=== PATIENT | male | born 1955 | race Asian ===

== ENCOUNTER 2019-11-15 08:21 | Inpatient (IN) | payer BC ==
[~2019-11-15] VITALS: Ht 177.8 cm; Wt 81.8 kg
[2019-11-15] MEDS ORDERED: nitroGLYCERIN 0.4mg SUBLingual tab SL PRN ×3 (08:55→10:00)
[2019-11-15] MEDS ORDERED: aspirin 81mg tab.chew PO ONE (08:55)
[2019-11-15 09:19] LABS: BASOPHILS % (AUTO) 0.7 % (0-1); EOSINOPHILS # (AUTO) 0.1 X10'3 (0-0.9); HEMATOCRIT 41.8 % (42.0-52.0); HEMOGLOBIN 14.3 g/dl (14.0-17.9); LYMPHOCYTES # (AUTO) 0.9 X10'3 (1.1-4.8); MEAN CORPUSCULAR HEMOGLOBIN 32.1 PG (27.0-31.0); MEAN CORPUSCULAR HGB CONC 34.1 g/dL (33.0-36.5); MEAN PLATELET VOLUME 7.5 FL (7.4-10.4); MONOCYTES # (AUTO) 0.4 X10'3 (0-0.9); MONOCYTES % (AUTO) 7.6 % (2-12); NEUTROPHILS % (AUTO) 72.7 % (42-75); PLATELET COUNT 216 X10'3 (140-440); RED BLOOD COUNT 4.44 X10'6 (4.70-6.10); RED CELL DISTRIBUTION WIDTH 12.4 % (11.5-14.5); WHITE BLOOD COUNT 5.5 X10'3 (4.5-11.0)
[2019-11-15 09:24] LABS: ALANINE AMINOTRANSFERASE 36 U/L (12-78); ALBUMIN 3.8 G/DL (3.4-5.0); ALBUMIN/GLOBULIN RATIO 1.1 (1.1-1.5); ALKALINE PHOSPHATASE 76 IU/L (46-116); ANION GAP 7 (8-16); ASPARTATE AMINO TRANSFERASE 21 U/L (10-37); BILIRUBIN,TOTAL 0.9 MG/DL (0.1-1.0); BLOOD UREA NITROGEN 13 MG/DL (7-18); BUN/CREATININE RATIO 11.1 (5.4-32.0); CALCIUM 8.8 MG/DL (8.5-10.1); CHLORIDE 104 MMOL/L (99-107); CREATININE 1.17 MG/DL (0.60-1.10); GLUCOSE 158 MG/DL (70-104); POTASSIUM 3.9 MMOL/L (3.5-5.1); SODIUM 140 MMOL/L (135-145); TOTAL CARBON DIOXIDE 29.4 MMOL/L (24-32); TOTAL PROTEIN 7.3 G/DL (6.4-8.2); eGFR 63 ML/MIN
[2019-11-15] MEDS ORDERED: regadenoson 0.4mg/5ml syringe IV PRN (10:00)
[2019-11-15] MEDS ORDERED: potassium Cl 20 mEq SR tablet PO PRN ×2 (10:00)
[2019-11-15] MEDS ORDERED: acetaminophen 325mg tablet PO PRN ×2 (10:00)
[2019-11-15] MEDS ORDERED: ondansetron/PF 4mg/2ml inj IV PRN (10:00)
[2019-11-15] MEDS ORDERED: HYDROcodone/acetaminophen 10/325mg tab PO PRN (10:00)
[2019-11-15] MEDS ORDERED: metoprolol tartrate 1mg/ml inj IV PRN (10:00)
[2019-11-15] MEDS ORDERED: magnesium hydroxide 30ml (MOM) UD suspension PO PRN (10:00)
[2019-11-15] MEDS ORDERED: HYDROcodone/acetaminophen 5mg/325mg tablet PO PRN (10:00)
[2019-11-15] MEDS ORDERED: aminophylline 250mg/10ml inj. IV PRN (10:00)
[2019-11-15] MEDS ORDERED: magnesium Cl slow-release 64mg tablet PO PRN (10:00)
[2019-11-15] MEDS ORDERED: magnesium 2GM in 50ml NS 50 ML IV PRN (10:00)
[2019-11-15] MEDS ORDERED: potassium CL 10mEq/100ml bag 100 ML IV PRN ×2 (10:00)
[2019-11-15] MEDS ORDERED: magnesium 4gm in 100ml NS 100 ML IV PRN (10:00)
[2019-11-15] MEDS ORDERED: morphine 2 MG/ML inj. syringe IV PRN ×2 (10:00)
[2019-11-15] MEDS ORDERED: mag hydrox/Alum hydrox/simeth 30ml oral suspension PO PRN (10:00)
[2019-11-15 10:08] LABS: PARTIAL THROMBOPLASTIN TIME 27 SECONDS (22-32)
[2019-11-15] MEDS: normal saline 1000ml 1,000 ML IV SCH ×2 (10:41→22:27)
--- NOTE | 2019-11-15 10:51 | NUR ---
RECEIVED TELEPHONE REPORT FROM BILL BRIGGS.
[2019-11-15 11:00] VITALS: BP 134/82
[2019-11-15] MEDS ORDERED: ASPI-611 PO (11:58)
[2019-11-15] MEDS ORDERED: CARV12.5 PO (11:58)
[2019-11-15] MEDS ORDERED: ATOR40TA71 PO (11:58)
[2019-11-15] MEDS ORDERED: RANO500T3 PO (11:58)
--- NOTE | 2019-11-15 14:01 | NUR ---
PAGER ID: [phone] MESSAGE: DR. LANGE, 3012C/TOPHER, 3 HOUR TROP 0.07. JORY 2329/5451. TY
[2019-11-15] MEDS ORDERED: heparin 10,000 units/1 ML INJ IV PRN (14:40)
[2019-11-15] MEDS ORDERED: heparin 10,000 units/1 ML INJ IV ONE (14:40)
[2019-11-15 15:00] VITALS: BP 116/71
[2019-11-15] MEDS: heparin 25,000 UNIT/250ml bag 250 ML IV SCH (15:50)
[2019-11-15 18:00] VITALS: BP 131/84
--- NOTE | 2019-11-15 18:00 | NUR ---
PAGED RT:3012C HAS NEW RT ORDER FOR CPAP AT NIGHT. JORY 5455.
--- NOTE | 2019-11-15 18:26 | NUR ---
Patient in room PCU 3012. I have received report from Sesar KHAN and had the opportunity to ask questions and assume patient care.
--- NOTE | 2019-11-15 18:33 | NUR ---
Problems reprioritized. Patient report given, questions answered & plan of care reviewed with harris rodrigez.
[2019-11-15] MEDS: K and/or MAG REPLACEMENT MC SCH (19:01)
[2019-11-15] MEDS: carVEDilol 12.5mg tablet PO SCH (20:02)
[2019-11-15] MEDS ORDERED: temazepam 15mg capsule PO PRN (21:00)
[2019-11-15 22:00] VITALS: BP 119/76
[2019-11-16] VITALS (15 sets, daily range): BP systolic 102–136; BP diastolic 56–87
[2019-11-16 06:05] LABS: BASOPHILS % (AUTO) 0.6 % (0-1); EOSINOPHILS # (AUTO) 0.1 X10'3 (0-0.9); EOSINOPHILS % (AUTO) 2.3 % (0-6); HEMATOCRIT 39.5 % (42.0-52.0); HEMOGLOBIN 13.5 g/dl (14.0-17.9); LYMPHOCYTES # (AUTO) 0.9 X10'3 (1.1-4.8); LYMPHOCYTES % (AUTO) 16.9 % (21-51); MEAN CORPUSCULAR HEMOGLOBIN 32.2 PG (27.0-31.0); MEAN CORPUSCULAR HGB CONC 34.2 g/dL (33.0-36.5); MEAN PLATELET VOLUME 7.3 FL (7.4-10.4); MONOCYTES # (AUTO) 0.5 X10'3 (0-0.9); MONOCYTES % (AUTO) 8.4 % (2-12); NEUTROPHILS % (AUTO) 71.8 % (42-75); PLATELET COUNT 198 X10'3 (140-440); RED CELL DISTRIBUTION WIDTH 12.7 % (11.5-14.5); WHITE BLOOD COUNT 5.5 X10'3 (4.5-11.0)
[2019-11-16 06:19] LABS: ALANINE AMINOTRANSFERASE 32 U/L (12-78); ALBUMIN 3.3 G/DL (3.4-5.0); ALKALINE PHOSPHATASE 62 IU/L (46-116); ANION GAP 8 (8-16); ASPARTATE AMINO TRANSFERASE 21 U/L (10-37); BILIRUBIN,TOTAL 0.7 MG/DL (0.1-1.0); BLOOD UREA NITROGEN 11 MG/DL (7-18); BUN/CREATININE RATIO 11.3 (5.4-32.0); CALCIUM 8.1 MG/DL (8.5-10.1); CHLORIDE 108 MMOL/L (99-107); CHOL/HDL RATIO 2.7 (0.00-4.99); CHOLESTEROL 130 MG/DL (0-200); CREATININE 0.97 MG/DL (0.60-1.10); GLUCOSE 121 MG/DL (70-104); HDL CHOLESTEROL 48 MG/DL (35-60); LDL CHOLESTEROL 65 MG/DL (50-100); MAGNESIUM 1.8 MG/DL (1.5-2.4); POTASSIUM 3.7 MMOL/L (3.5-5.1); SODIUM 142 MMOL/L (135-145); TOTAL CARBON DIOXIDE 25.8 MMOL/L (24-32); TOTAL PROTEIN 6.5 G/DL (6.4-8.2); TRIGLYCERIDES 114 MG/DL (20-135); eGFR 78 ML/MIN
--- NOTE | 2019-11-16 06:23 | NUR ---
Problems reprioritized. Patient report given, questions answered & plan of care reviewed with Maria Teresa KHAN.
--- NOTE | 2019-11-16 06:35 | NUR ---
Patient in room PCU 3012. I have received report from BILL Ho and had the opportunity to ask questions and assume patient care. Patient awake in bed and in no acute distress.
[2019-11-16] MEDS ORDERED: enoxaparin 40mg/0.4ml syringe SQ SCH (08:00)
[2019-11-16] MEDS: K and/or MAG REPLACEMENT MC SCH ×2 (08:00→19:29)
[2019-11-16] MEDS ORDERED: non-formulary drug (Aspirin (Aspir 81) 1 TAB) PO SCH (08:00)
[2019-11-16] MEDS: atorvastatin 20mg tablet PO SCH (08:19)
[2019-11-16] MEDS: aspirin 81mg tablet.DR PO SCH (08:20)
[2019-11-16] MEDS: carVEDilol 12.5mg tablet PO SCH ×2 (08:20→19:23)
[2019-11-16] MEDS: normal saline 1000ml 1,000 ML IV SCH (11:30)
[2019-11-16] MEDS ORDERED: LIDOcaine 1% (10mg/ml)w/preservative injection 20ml MDV ONE (15:19)
[2019-11-16] MEDS ORDERED: iohexol 350MG/ML 100ml bottle IV ONE (15:19)
[2019-11-16] MEDS: heparin 25,000 UNIT/250ml bag 250 ML IV SCH (16:08)
[2019-11-16] MEDS ORDERED: fentaNYL/PF 50MCG/1 ML 2ML syringe ONE (17:38)
[2019-11-16] MEDS ORDERED: midazolam 2 mg/2 ml injection ONE ×2 (17:38→17:55)
--- NOTE | 2019-11-16 17:41 | NUR ---
Patient going down to microbiology lab manager.
--- NOTE | 2019-11-16 18:01 | NUR ---
Problems reprioritized. Patient report given, questions answered & plan of care reviewed with BILL Ho. Patient down at section laborer at transfer of care.
--- NOTE | 2019-11-16 18:23 | NUR ---
Patient in room PCU 3012. I have received report from Maria Teresa KHAN and had the opportunity to ask questions and assume patient care.
[2019-11-16] MEDS ORDERED: proCHLORperazine 10 MG/2 ml inj IV PRN (18:55)
[2019-11-16] MEDS ORDERED: ranolazine 500mg SR tablet (Q12H) PO PRN (18:55)
[2019-11-16] MEDS ORDERED: OXAZEpam 15mg capsule PO PRN (18:55)
[2019-11-17 02:00] VITALS: BP 120/76
[2019-11-17 05:39] LABS: BASOPHILS % (AUTO) 0.4 % (0-1); EOSINOPHILS # (AUTO) 0.1 X10'3 (0-0.9); HEMATOCRIT 42.1 % (42.0-52.0); HEMOGLOBIN 14.5 g/dl (14.0-17.9); LYMPHOCYTES # (AUTO) 1.1 X10'3 (1.1-4.8); LYMPHOCYTES % (AUTO) 13.6 % (21-51); MEAN CORPUSCULAR HEMOGLOBIN 32.3 PG (27.0-31.0); MEAN CORPUSCULAR HGB CONC 34.5 g/dL (33.0-36.5); MEAN CORPUSCULAR VOLUME 93.6 FL (78-98); MEAN PLATELET VOLUME 7.3 FL (7.4-10.4); MONOCYTES # (AUTO) 0.6 X10'3 (0-0.9); MONOCYTES % (AUTO) 7.7 % (2-12); NEUTROPHILS # (AUTO) 6.2 X10'3 (1.8-7.7); NEUTROPHILS % (AUTO) 77.3 % (42-75); PLATELET COUNT 199 X10'3 (140-440); RED CELL DISTRIBUTION WIDTH 12.5 % (11.5-14.5)
[2019-11-17 05:57] LABS: ALANINE AMINOTRANSFERASE 34 U/L (12-78); ALBUMIN 3.3 G/DL (3.4-5.0); ALKALINE PHOSPHATASE 68 IU/L (46-116); ANION GAP 7 (8-16); ASPARTATE AMINO TRANSFERASE 19 U/L (10-37); BILIRUBIN,TOTAL 0.7 MG/DL (0.1-1.0); BLOOD UREA NITROGEN 13 MG/DL (7-18); BUN/CREATININE RATIO 12.9 (5.4-32.0); CALCIUM 8.4 MG/DL (8.5-10.1); CHLORIDE 106 MMOL/L (99-107); CREATININE 1.01 MG/DL (0.60-1.10); GLUCOSE 150 MG/DL (70-104); MAGNESIUM 1.9 MG/DL (1.5-2.4); POTASSIUM 3.6 MMOL/L (3.5-5.1); SODIUM 140 MMOL/L (135-145); TOTAL CARBON DIOXIDE 26.9 MMOL/L (24-32); TOTAL PROTEIN 6.6 G/DL (6.4-8.2); eGFR 75 ML/MIN
--- NOTE | 2019-11-17 06:27 | NUR ---
Problems reprioritized. Patient report given, questions answered & plan of care reviewed with Maria Teresa KHAN.
[2019-11-17 07:00] VITALS: BP 102/65
[2019-11-17] MEDS: aspirin 81mg tablet.DR PO SCH (07:43)
[2019-11-17] MEDS: K and/or MAG REPLACEMENT MC SCH (07:43)
[2019-11-17] MEDS: carVEDilol 12.5mg tablet PO SCH (07:43)
[2019-11-17] MEDS: atorvastatin 20mg tablet PO SCH (07:43)
[2019-11-17] MEDS ORDERED: NITR0.4T51 SL (10:14)
--- NOTE | 2019-11-17 11:25 | NUR ---
Patient stable for discharge per MD orders. All discharge instructions and questions answered appropriately. Belongings collected and sent with patient. Patient declined for us to make a discharge appointment and will call his PCP once he got home today. Patient will follow up with Dr. Duncan in 2 weeks as well. Patient's echocardiogram was cancelled because this patient went straight to laboratory director. PIV x2 discontinued. 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 New prescriptions sent electronically to [facility]. Patient wheeled down to [facility] and left via private vehicle.
== END 2019-11-17 11:25 | disposition home or self-care (01) | DRG 281 ==
LOC: ER 08:21 → ED HOLD 09:57 → PCU 3S 11:20 → OBSVTOIN 11-16 15:00
PROVIDERS: ADMIT Family Medicine; ATTEND Family Medicine
PROC: 4A023N7 Measurement of Cardiac Sampling and Pressure, Left Heart, Percutaneous Approach (ICD-10-PCS; principal; 2019-11-16)
PROC: B2111ZZ Fluoroscopy of Multiple Coronary Arteries using Low Osmolar Contrast (ICD-10-PCS; 2019-11-16)
PROC: B2151ZZ Fluoroscopy of Left Heart using Low Osmolar Contrast (ICD-10-PCS; 2019-11-16)
DX: I21.4 Non-ST elevation (NSTEMI) myocardial infarction (principal); I50.42 Chronic combined systolic (congestive) and diastolic (congestive) heart failure; E78.5 Hyperlipidemia, unspecified; I25.110 Atherosclerotic heart disease of native coronary artery with unstable angina pectoris; G47.33 Obstructive sleep apnea (adult) (pediatric); I11.0 Hypertensive heart disease with heart failure; I44.7 Left bundle-branch block, unspecified; I48.0 Paroxysmal atrial fibrillation; K21.9 Gastro-esophageal reflux disease without esophagitis; M79.7 Fibromyalgia; Z82.49 Family history of ischemic heart disease and other diseases of the circulatory system; Z87.19 Personal history of other diseases of the digestive system; Z87.442 Personal history of urinary calculi; I25.2 Old myocardial infarction; Z95.1 Presence of aortocoronary bypass graft; Z95.5 Presence of coronary angioplasty implant and graft
CPT/HCPCS: 36415; 71045; 80053; 80061; 83036; 83735; 84484; 85025; 85610; 85730; 87081; 93005; 93458; 94760; 99152; 99153; 99285; A4620; A6258; C1760; C1769; C1894; G0378; J1644; J2001; J2250; J3010; J7030; Q9967

== ENCOUNTER 2024-03-24 09:32 | Outpatient (CLI) | payer MEDICARE ==
[~2024-03-24 09:32] MED LIST: ASPI-611 PO; ATOR40TA71 PO; CARV12.5 PO; NITR0.4T51 SL; RANO500T3 PO
== END 2024-03-24 23:59 | disposition home or self-care (01) ==
LOC: RAD 09:32
PROVIDERS: ATTEND Nurse Practitioner
DX: N23 Unspecified renal colic (principal)
CPT/HCPCS: 76770

== ENCOUNTER 2024-05-30 08:00 | Emergency (ER) | payer MEDICARE ==
[~2024-05-30] VITALS: Ht 177.8 cm; Wt 85.2 kg
[2024-05-30 08:10] VITALS: BP 123/75; PULSE 77; RESP 18; O2SAT 96
[2024-05-30 10:07] LABS: BASOPHILS % (AUTO) 0.8 % (0-1); EOSINOPHILS # (AUTO) 0.1 X10'3 (0-0.9); EOSINOPHILS % (AUTO) 2.4 % (0-6); HEMATOCRIT 42.8 % (42.0-52.0); HEMOGLOBIN 14.7 g/dl (14.0-17.9); LYMPHOCYTES # (AUTO) 0.9 X10'3 (1.1-4.8); LYMPHOCYTES % (AUTO) 20.8 % (21-51); MEAN CORPUSCULAR HEMOGLOBIN 31.8 PG (27.0-31.0); MEAN CORPUSCULAR HGB CONC 34.3 g/dL (33.0-36.5); MEAN CORPUSCULAR VOLUME 92.7 FL (78-98); MEAN PLATELET VOLUME 7.4 FL (7.4-10.4); MONOCYTES # (AUTO) 0.3 X10'3 (0-0.9); MONOCYTES % (AUTO) 7.4 % (2-12); NEUTROPHILS # (AUTO) 3.1 X10'3 (1.8-7.7); NEUTROPHILS % (AUTO) 68.6 % (42-75); PLATELET COUNT 186 X10'3 (140-440); RED BLOOD COUNT 4.62 X10'6 (4.70-6.10); RED CELL DISTRIBUTION WIDTH 12.7 % (11.5-14.5); WHITE BLOOD COUNT 4.5 X10'3 (4.5-11.0)
[2024-05-30 10:20] LABS: PROTHROMBIN TIME 10.8 SECONDS (9.0-12.0)
[2024-05-30 10:50] LABS: BILIRUBIN,URINE NEGATIVE (Neg); CLARITY,URINE CLEAR (Clear); COLOR,URINE YELLOW (Yellow); GLUCOSE, URINE NEGATIVE (Neg); KETONES,URINE NEGATIVE (Neg); LEUKOCYTE ESTERASE ,URINE NEGATIVE (Neg); NITRITES, URINE NEGATIVE (Neg); OCCULT BLOOD,URINE NEGATIVE (Neg); PROTEIN,URINE NEGATIVE (Neg); UA COLLECTION TYPE CLN CATCH MIDSTREAM; UROBILINOGEN,URINE 0.2 E.U/dL (0.2-1.0)
[2024-05-30 11:07] LABS: ALANINE AMINOTRANSFERASE 51 U/L (12-78); ALBUMIN 4.2 G/DL (3.4-5.0); ALBUMIN/GLOBULIN RATIO 1.2 (1.1-1.5); ALKALINE PHOSPHATASE 70 IU/L (46-116); ANION GAP 7 (8-16); ASPARTATE AMINO TRANSFERASE 26 U/L (10-37); BILIRUBIN,TOTAL 1.2 MG/DL (0.1-1.0); BLOOD UREA NITROGEN 16 MG/DL (7-18); CALCIUM 8.9 MG/DL (8.5-10.1); CHLORIDE 107 MMOL/L (99-107); CREATININE 0.89 MG/DL (0.60-1.10); GLUCOSE 117 MG/DL (70-104); LIPASE 37 U/L (16-77); POTASSIUM 4.2 MMOL/L (3.5-5.1); SODIUM 142 MMOL/L (135-145); TOTAL CARBON DIOXIDE 28.5 MMOL/L (24-32); TOTAL PROTEIN 7.7 G/DL (6.4-8.2); eCRCL 83 ML/MIN; eGFR 85 ML/MIN
[2024-05-30 11:31] VITALS: TEMP 97.4
== END 2024-05-30 11:33 | disposition home or self-care (01) ==
LOC: ER 08:01
DX: S30.1XXA Contusion of abdominal wall, initial encounter (principal); I25.10 Atherosclerotic heart disease of native coronary artery without angina pectoris; Z87.442 Personal history of urinary calculi; Z95.1 Presence of aortocoronary bypass graft; Z79.82 Long term (current) use of aspirin; Z79.899 Other long term (current) drug therapy; X58.XXXA Exposure to other specified factors, initial encounter; Y93.89 Activity, other specified; Y92.89 Other specified places as the place of occurrence of the external cause; Y99.8 Other external cause status
CPT/HCPCS: 36415; 74176; 80053; 81003; 83690; 85025; 85610; 99284